=== PATIENT | female | born 1970 | race Caucasian/White ===

== ENCOUNTER 2017-05-15 10:17 | Emergency (ER) | payer OTHER ==
[~2017-05-15] VITALS: Ht 160 cm; Wt 73.3 kg
[2017-05-15 10:22] VITALS: TEMP 36.6; Ht 160 cm; Wt 73.3 kg
[2017-05-15] MEDS ORDERED: VANCOMYCIN INJ 1,750 MG in SODIUM CHLORIDE 0.9% 500ML 500 ML IV STA (10:32)
--- NOTE | 2017-05-15 10:34 | EMERGENCY ROOM VISIT NOTE ---
History Report prepared by Karl: Alicia Ryan Under the Supervision of: Dr. Andry Danielle M.D. First contact with patient: 10:26 Chief Complaint: INFECTION Stated Complaint: INFECTION ON SCALP Nursing Triage Summary: Patient presents with c/o infection on her scalp Was seen at acute care in [place] and started on keflex 500mg Monday Patient states redness to area is worse and now left face is more swollen Pain is also increased History of Present Illness The patient is a 46 year old female who presents to the Emergency Room with complaints of a persistent infection to her left scalp that began . She currently rates her discomfort as an 8/10 in severity. The patient describes her pain as a pressure. She states that she first noticed the infection form and states that she was evaluated at an Urgent Care in [place]. The patient states that she was started on Keflex, but denies any relief of her symptoms. She states that her infection has worsened, noting swelling over her eyes and face. The patient denies any drainage from the area. She denies any fever. The patient denies any personal history of MRSA, but reports that her son has a history of MRSA. Source of History: patient Onset: Position: head (left scalp) Symptom Intensity: 8/10 Quality: pressure, other (infection) Timing: worsening, other (persistent) Associated Symptoms: No fevers Note: Associated Symptoms: swelling over eyes and face Review of Systems See HPI for pertinent positives & negatives. A total of 6 systems reviewed and were otherwise negative. Past Medical & Surgical Surgical Problems: (1) Previous section Family History FHx: cancer Social History Smoking Status: Current Every Day Smoker Smokeless Tobacco Use: No Alcohol Use: none Marital Status: Housing Status: lives with significant other Occupation Status: employed Current/Historical Medications Scheduled Cephalexin Monohydrate (Keflex), 500 MG PO QID Fexofenadine Hcl (Daly), 180 MG PO DAILY Sulfa/Trimethoprim (Bactrim Ds 800MG/160MG), 1 TAB PO BID Allergies Coded Allergies: No Known Allergies (Verified , 10/24/02) Physical Exam Vital Signs Date Time Temp Pulse Resp B/P (MAP) Pulse Ox O2 Delivery O2 Flow Rate FiO2 05/15/17 13:00 75 16 113/70 100 Room Air 05/15/17 10:22 36.6 96 20 121/81 100 Room Air Physical Exam GENERAL: Patient is well appearing and in mild distress. HEENT: 0.5 cm ulcerated infection of the left anterior scalp with surrounding cellulitis, mild erythema, no fluctuance, mildly swollen with some descending/ cellulitis of the left upper face, mucous membranes moist, no nasal congestion, no scleral icterus. NECK: No stridor, no adenopathy, no meningismus, trachea is midline. LUNGS: No dyspnea. Clear to auscultation and equal bilaterally. No wheeze, no rhonchi. HEART: Regular rate and rhythm. No murmurs, rubs, gallops appreciated. EXTREMITIES: Normal motion all extremities, no cyanosis, no edema. NEUROLOGIC: Alert and oriented, no acute motor or sensory deficits, no focal weakness, cranial nerves grossly intact. SKIN: No rash, no jaundice, no diaphoresis. Medical Decision & Procedures Laboratory Results 05/15/17 11:02 Red Blood Count 4.07, Mean Corpuscular Volume 87.2, Mean Corpuscular Hemoglobin 28.5, Mean Corpuscular Hemoglobin Concent 32.7, Mean Platelet Volume 9.3, Neutrophils (%) (Auto) 70.0, Lymphocytes (%) (Auto) 20.4, Monocytes (%) (Auto) 6.4, Eosinophils (%) (Auto) 2.3, Basophils (%) (Auto) 0.6, Neutrophils # (Auto) 6.00, Lymphocytes # (Auto) 1.75, Monocytes # (Auto) 0.55, Eosinophils # (Auto) 0.20, Basophils # (Auto) 0.05 05/15/17 11:02 Test 05/15/17 11:02 White Blood Count 8.58 K/uL (4.8-10.8) Red Blood Count 4.07 M/uL (4.2-5.4) Hemoglobin 11.6 g/dL (12.0-16.0) Hematocrit 35.5 % (37-47) Mean Corpuscular Volume 87.2 fL (80-100) Mean Corpuscular Hemoglobin 28.5 pg (25-34) Mean Corpuscular Hemoglobin Concent 32.7 g/dl (32-36) Platelet Count 442 K/uL (130-400) Mean Platelet Volume 9.3 fL (7.4-10.4) Neutrophils (%) (Auto) 70.0 % Lymphocytes (%) (Auto) 20.4 % Monocytes (%) (Auto) 6.4 % Eosinophils (%) (Auto) 2.3 % Basophils (%) (Auto) 0.6 % Neutrophils # (Auto) 6.00 K/uL (1.4-6.5) Lymphocytes # (Auto) 1.75 K/uL (1.2-3.4) Monocytes # (Auto) 0.55 K/uL (0.11-0.59) Eosinophils # (Auto) 0.20 K/uL (0-0.5) Basophils # (Auto) 0.05 K/uL (0-0.2) RDW Standard Deviation 47.8 fL (36.4-46.3) RDW Coefficient of Variation 14.9 % (11.5-14.5) Immature Granulocyte % (Auto) 0.3 % Immature Granulocyte # (Auto) 0.03 K/uL (0.00-0.02) Anion Gap 5.0 mmol/L (3-11) Est Creatinine Clear Calc Drug Dose 85.3 ml/min Estimated GFR () 104.0 Estimated GFR (Non- 89.8 BUN/Creatinine Ratio 6.0 (10-20) Calcium Level 9.0 mg/dl (8.5-10.1) C-Reactive Protein 0.39 mg/dl (0-0.29) Laboratory results as reviewed by me. Medications Administered Medications (Trade) Dose Ordered Sig/Tuan Route Start Time Stop Time Status Last Admin Dose Admin Vancomycin HCl 1750 mg/Sodium Chloride 535 ml @ 200 mls/hr ONE STAT IV 05/15/17 10:32 05/15/17 13:12 DC 05/15/17 10:32 200 MLS/HR ED Course 1027: The patient was evaluated in room B3B. A complete history and physical exam was performed. 1032: Ordered Vancomycin HCl 1750 mg/Sodium Chloride 535 ml @ 200 mls/hr IV. 1140: I reevaluated the patient and she is doing well. 1250: I reevaluated the patient and she is resting comfortably. I discussed the exam findings with her and I discussed the treatment plan. She verbalized complete understanding and agreement. She is ready to go home. Medical Decision Very pleasant 46 yr old female with carbuncle, already drained though now with small scabbed ulcer and surrounding cellulitis and some associated left facial swelling. There is no fluctuance nor drainable abscess at this time. On Keflex 48 hrs without significant improvement. Sone with history of MRSA. Labs look good. With IV in place and location of wound/cellulitis seems reasonable being aggressive with this, given dose IV Vanco which will be good for 24 hours. If worsening by tomorrow than already ahead of the game, but if improvement/stable seems reasonable to add on Bactrim. Not currently indicated for admission but she is aware if worsening or other concerns return for further evaluation. Medication Reconcilliation Current Medication List: was personally reviewed by me Blood Pressure Screening Patient's blood pressure: Normal blood pressure Blood pressure disposition: Did not require urgent referral Impression Primary Impression: Cellulitis of scalp Scribe Attestation The scribe's documentation has been prepared under my direction and personally reviewed by me in its entirety. I confirm that the note above accurately reflects all work, treatment, procedures, and medical decision making performed by me. Departure Information Dispostion Home / Self-Care Prescriptions Sulfa/Trimethoprim (Bactrim Ds 800MG/160MG) Tab 1 TAB PO BID, #20 TAB Prov: Andry Danielle M.D. 05/15/17 Referrals No Doctor, Assigned (PCP) Forms HOME CARE DOCUMENTATION FORM, IMPORTANT VISIT INFORMATION Patient Instructions ED Cellulitis Facial, My [facility]
[2017-05-15] MEDS ORDERED: FEXO1TAB46 PO (10:37)
[2017-05-15] MEDS ORDERED: CEPH500C2 PO (10:37)
[2017-05-15 11:10] LABS: BASO % 0.6 %; BASO ABS # 0.05 K/uL (0-0.2); COMPLETE YES; EOS % 2.3 %; HEMATOCRIT 35.5 % (37-47); IG% 0.3 %; LYMPH % 20.4 %; LYMPH ABS # 1.75 K/uL (1.2-3.4); MEAN CELL VOLUME 87.2 fL (80-100); MEAN CORPUSCULAR HEMOGLOBIN 28.5 pg (25-34); MEAN CORPUSCULAR HGB CONC 32.7 g/dl (32-36); MEAN PLATELET VOLUME 9.3 fL (7.4-10.4); MONO % 6.4 %; PLATELET COUNT 442 K/uL (130-400); RED BLOOD COUNT 4.07 M/uL (4.2-5.4); WHITE BLOOD COUNT 8.58 K/uL (4.8-10.8)
[2017-05-15 11:27] LABS: C-REACTIVE PROTEIN 0.39 mg/dl (0-0.29); CREATININE 0.79 mg/dl (0.60-1.20); POTASSIUM 3.3 mmol/L (3.5-5.1)
[2017-05-15] MEDS ORDERED: SULF800T23 PO (12:28)
[2017-05-15 13:00] VITALS: BP 113/70; PULSE 75; O2SAT 100
== END 2017-05-15 14:52 | disposition home or self-care (01) ==
LOC: C.EDB 10:18
DX: L03.811 Cellulitis of head [any part, except face] (principal); F17.200 Nicotine dependence, unspecified, uncomplicated

== ENCOUNTER 2017-06-12 15:48 | Emergency (ER) | payer OTHER ==
[~2017-06-12] VITALS: Ht 160 cm; Wt 74.9 kg
[~2017-06-12 15:48] MED LIST: CEPH500C2 PO; FEXO1TAB46 PO; SULF800T23 PO
[2017-06-12 15:53] VITALS: Ht 160 cm; Wt 74.9 kg
[2017-06-12] MEDS ORDERED: CEPH500C PO (16:32)
[2017-06-12] MEDS ORDERED: SULF800T23 PO (16:32)
[2017-06-12 16:54] VITALS: BP 116/87; PULSE 86; O2SAT 98
--- NOTE | 2017-06-12 19:37 | EMERGENCY ROOM VISIT NOTE ---
History First contact with patient: 16:20 Chief Complaint: INFECTION Stated Complaint: INFECTION IN LEFT ARM Nursing Triage Summary: Patient ambulatory to triage with an upright and steady gait, states "I have an infection on my left arm. I have a little area that's open but kind of healing. The left upper arm is so inflammed and swollen." Patient denies fevers or chills. Patient reports this area started as a possible insect bite. History of Present Illness The patient is a 46 year old female who presents to the Emergency Room with complaints of left arm infection. The patient reports that she noticed an area of itchiness approximate 1 week ago. She does admit to scratching her arm with a resolving scab. The patient reports that over the past 24 hours, she has now noticed inflammation and swelling above the wound. The patient reports that her son recently was diagnosed with MRSA infection. The patient was in the emergency department one month ago with an infection that cleared with IV vancomycin and oral Keflex/Bactrim DS treatment. The patient denies any personal history of MRSA, nor has she been tested as a MRSA carrier. Review of Systems 10 system review was performed and was negative except for pertinent positives and negatives as indicated in history of present illness Past Medical/Surgical History Surgical Problems: (1) Previous section Family History FHx: cancer Social History Smoking Status: Current Every Day Smoker Alcohol Use: none Marital Status: Housing Status: lives with family Occupation Status: employed Current/Historical Medications Scheduled Cephalexin Monohydrate (Keflex), 500 MG PO BID Cephalexin Monohydrate (Keflex), 500 MG PO QID Sulfa/Trimethoprim (Bactrim Ds 800MG/160MG), 1 TAB PO BID Physical Exam Vital Signs Date Time Temp Pulse Resp B/P (MAP) Pulse Ox O2 Delivery O2 Flow Rate FiO2 06/12/17 16:54 86 16 116/87 98 06/12/17 15:53 91 18 132/86 100 Room Air Physical Exam CONSTITUTIONAL: Healthy and well nourished. Alert and oriented X 3 with positive affect. HEENT: Normocephalic, atraumatic. Pupils equal, round and reactive. NECK: Full active range of motion without discomfort. INTEGUMENTARY: Examination of the left anterolateral upper arm shows an area of erythema with increased warmth to palpation. She has a healing abrasion over the lateral aspect of the elbow without induration, fluctuance or drainage. No worsening pain with flexion or extension of the elbow or shoulder. Distal pulses are intact. NEUROLOGIC: No focal neurologic deficits noted. Left hand and fingers are sensory intact. Medical Decision & Procedures Laboratory Results Date/Time Source Procedure Growth Status 06/12/17 16:54 Nasal MRSA DNA Surveillance Screen - Final Specimen Positive for MRSA by DNA Probe Complete ED Course Patient history and physical exam were performed. Nurse's notes were reviewed. Vital signs were reviewed and were normal. The patient will be treated with Keflex and Bactrim DS antibiotics for possible MRSA coverage. I did elect to order a nasal swab for MRSA surveillance, and asked the patient to follow-up with her PCP in the next 2-3 days for further review and cellulitis recheck. She was instructed to return to the emergency department for any significant worsening infection or fevers or the patient was happy with plan of care, voiced understanding of all discharge instructions, and denied any pain at the time of discharge. Medical Decision Medication Reconcilliation Current Medication List: was personally reviewed by me Blood Pressure Screening Patient's blood pressure: Normal blood pressure Impression Primary Impression: Cellulitis of left upper arm Departure Information Dispostion Home / Self-Care Condition GOOD Prescriptions Sulfa/Trimethoprim (Bactrim Ds 800MG/160MG) Tab 1 TAB PO BID for 7 Days, #14 TAB Prov: Tyler Xiao PA 06/12/17 Cephalexin Monohydrate (Keflex) 500 Mg Cap 500 MG PO QID for 7 Days, #28 CAP Prov: Tyler Xiao PA 06/12/17 Forms HOME CARE DOCUMENTATION FORM, IMPORTANT VISIT INFORMATION Patient Instructions [facility] Additional Instructions Complete all Keflex and Bactrim DS antibiotics as prescribed. Ibuprofen or Tylenol if needed for pain. Return to the emergency department for any progressively worsening redness, swelling, pain or fever. Suggest follow-up with your family doctor in 3 days to review your nasal swab cultures for possible MRSA.
== END 2017-06-12 16:54 | disposition home or self-care (01) ==
LOC: C.EDB 15:51 → C.EDD 16:54
DX: L03.114 Cellulitis of left upper limb (principal); F17.200 Nicotine dependence, unspecified, uncomplicated